=== PATIENT | female | born 2000 | race Caucasian/White ===

== ENCOUNTER 2020-02-02 22:55 | Emergency (ER) | payer OTHER, SELFPAY ==
--- NOTE | ~2020-02-02 | XR_ITS ---
XR shoulder RT min 2V DATE: 02/03/2020 02:04 INDICATION: Right glenohumeral anterior dislocation TECHNIQUE: 3 views COMPARISON: 02/02/2020 right shoulder, which demonstrate anterior dislocation at the right glenohumera l joint FINDINGS: There is reduction of anterior dislocation of the right shoulder. Normal alignment at the g lenohumeral and acromioclavicular joints and no apparent acute fracture. IMPRESSION: Reduction of anterior dislocation right shoulder Incidental findings of levoscoliosis of the upper thoracic spine and fracture deformity of undetermin ed age at T6 Reviewed, dictated and finalized at location A. IMPRESSION: Reduction of anterior dislocation right shoulder Incidental findings of levoscoliosis of the upper thoracic spine and fracture d eformity of undetermined age at T6
--- NOTE | ~2020-02-02 | XR_ITS ---
EXAMINATION: XR shoulder RT min 2V INDICATION: Right shoulder pain, dislocation TECHNIQUE: Four views of the right shoulder are submitted. COMPARISON: 11/14/2014 FINDINGS: There is anterior dislocation of the humeral head with respect to the glenoid. No acute fra cture is identified. Chronic deformity of the superolateral humeral head is consistent with prior Hil l-Sachs fracture. Soft tissues are unremarkable. IMPRESSION: 1. Anterior right shoulder dislocation. Reviewed, dictated and finalized at location A.
[2020-02-02 22:59] VITALS: BP 100/65; PULSE 83; RESP 20; TEMP 36.8; O2SAT 100
--- NOTE | 2020-02-02 23:03 | ED.UPPEXIN ---
HPI - Extremity Injury (Upper) General Chief Complaint: Extremity Injury, Upper Stated Complaint: ?R Shoulder dislocation Time Seen by Provider: 02/02/20 23:03 History of Present Illness HPI narrative: 19 yo female w/ h/o shoulder dislocation presents to the ED for a right shoulder dislocation. She reports that she was off balance and she reached out to catch herself. She had instant pain the same as prior dislocations. This is the seventh time. No weakness, numbness, wound. She denies any ohter injury. Related Data Home Medications Medication Instructions Recorded Confirmed ethosuximide 250 mg capsule 250 mg PO BID 08/17/19 folic acid 1 mg tablet 1 mg PO DAILY 08/17/19 lamotrigine 150 mg tablet 150 mg PO DAILY 08/17/19 multivitamin 1 tablet PO DAILY 08/17/19 propranolol 120 mg capsule,24 120 mg PO DAILY 08/17/19 hr,extended release zonisamide 100 mg capsule 100 mg PO DAILY 08/17/19 Allergies Allergy/AdvReac Type Severity Reaction Status Date / Time Penicillins Allergy Unknown Verified 12/23/16 10:47 Review of Systems Review of Systems: All systems reviewed & are unremarkable except as noted in HPI and below PMFSH Past Medical History Medical History Seizure disorder Surgical History Surgical History History of shoulder surgery Family History Family History Grandparent Diabetes mellitus Mother Family history of malignant neoplasm of cervix Social History Social History Smoking status: Never smoker Alcohol intake: never Exam Const: General: healthy appearing, no acute distress and alert Nutritional Appearance: well nourished Orientation/consciousness: patient oriented x3 HENMT: Head: normal to inspection Chest: Chest palpation & inspection: normal inspection of the chest and no tenderness Resp: Effort & Inspection: normal respiratory effort Auscultation: clear to auscultation bilaterally Cardio: Rate: regular rate Rhythm: regular rhythm Skin: General skin exam: normal color Wounds: no wounds Neuro: General: moves all extremities, no focal motor deficits and CN's II-XI intact bilaterally Speech: normal speech Other: sensation intact over deltoid. Distal motor and sensory intact. Extrem: Other: Right shoulder dislocation Course Vital Signs Vital signs: Vital Signs Temperature 36.8 C 02/02/20 22:59 Pulse Rate 83 02/02/20 22:59 Respiratory Rate 20 02/02/20 22:59 Blood Pressure 100/65 02/02/20 22:59 Pulse Oximetry 100 02/02/20 22:59 Temperature 36.6 C 02/03/20 01:41 Pulse Rate 80 02/03/20 02:25 Respiratory Rate 16 02/03/20 02:25 Blood Pressure 93/58 L 02/03/20 02:25 Pulse Oximetry 99 02/03/20 02:25 Procedures Orthopedic Joint Reduction Joint #1: Orthopedic Joint Reduction Date: 02/03/20 Orthopedic Joint Reduction Time: 01:10 Time Out Performed: Yes Side: right Joint Reduction Location: shoulder Analgesia: procedural sedation Pre-Procedure Neuro Vascular Exam: normal Shoulder Technique Used (if applicable): other Post-reduction neuro exam: intact Post-reduction vascular: intact Post Reduction X-Ray Obtained: Yes Post Reduction X-Ray Results: reduced Splint Applied: Yes Patient Tolerated Procedure: well Procedural Sedation Procedural Sedation #1: Procedural Sedation Date: 02/03/20 Procedural Sedation Time: 01:10 Procedure: SHoulder reduction Provider Performed: sedation and procedure Informed Consent Obtained: yes Equipment in Room: bag and mask, capnography, district engineer, oxygen, pulse oximeter and suction Plan for Sedation: moderate sedation ASA Class: I Pt. Educ
[2020-02-02] MEDS: fentaNYL CITRATE INJ (*CRX) 100 MCG/2 ML VIAL IV PUSH (23:42)
[2020-02-03] VITALS (9 sets, daily range): BP systolic 89–103; BP diastolic 52–60; PULSE 69–88; RESP 13–18; TEMP 36.6–36.7; O2SAT 98–100
[2020-02-03] MEDS: PROPOFOL IV EMULSION 200 MG/20 ML VIAL (01:10)
--- NOTE | 2020-02-03 01:32 | PC.NURSE ---
0110-50mg Propofol given---patient still showing signs of discomfort 0112 - 20mg Propofol given- patient no longer responsive or showing distress signs with manipulation of right shoulder by Dr Souza 0013-right shoulder relocated by Dr Souza
== END 2020-02-03 02:25 | disposition home or self-care (01) ==
PROVIDERS: Emergency Provider Emergency Medicine; PCP Pediatrics
DX: S43.014A Anterior dislocation of right humerus, initial encounter (principal); G40.909 Epilepsy, unspecified, not intractable, without status epilepticus; W10.9XXA Fall (on) (from) unspecified stairs and steps, initial encounter
CPT/HCPCS: 23650; 73030; 96374; 99285; J2704; J3010

== ENCOUNTER 2020-06-15 04:04 | Emergency (ER) | payer OTHER, SELFPAY ==
[2020-06-15] VITALS (7 sets, daily range): BP systolic 93–100; BP diastolic 60–82; PULSE 60–83; RESP 10–20; TEMP 36.4; O2SAT 99–100
--- NOTE | ~2020-06-15 | XR_ITS ---
EXAMINATION: XR shoulder RT min 2V INDICATION: Right shoulder pain TECHNIQUE: Two views of the right shoulder are submitted. COMPARISON: 02/03/2020 FINDINGS: There is anterior/inferior dislocation of the humeral head with respect to the glenoid. No acute fracture is identified. There is chronic deformity at the superolateral humeral head, consisten t with prior Hill-Sachs fracture. Soft tissues are unremarkable. The visualized portions of the thora x are normal. IMPRESSION: 1. Anterior/inferior right shoulder dislocation. Reviewed, dictated and finalized at location A. CLIENT BANKING SERVICES CLERK
--- NOTE | ~2020-06-15 | XR_ITS ---
EXAMINATION: XR shoulder RT min 2V INDICATION: Right shoulder pain post reduction TECHNIQUE: Two views of the right shoulder are submitted. COMPARISON: None FINDINGS: The right glenohumeral dislocation has been reduced. There is no acute fracture. Chronic de formity of the superolateral margin of the humeral head is consistent with prior Hill-Sachs fracture. The acromioclavicular joint is unremarkable. The visualized portions of the right hemithorax are nor mal. Soft tissues are unremarkable. IMPRESSION: 1. Reduced right shoulder dislocation. Reviewed, dictated and finalized at location A. ICES ENGINEER
--- NOTE | 2020-06-15 04:16 | ED.GENADULT ---
HPI - General Adult General Chief complaint: Extremity Injury, Upper Stated complaint: rt shoulder dislocation Time Seen by Provider: 06/15/20 04:09 History of Present Illness HPI narrative: Patient a 19-year-old female who presents the emergency department with chief complaint of right shoulder pain. The patient reports she has had multiple shoulder dislocations in the past and was sleeping and woke up and twisted her shoulder and felt that dislocate. Patient states it feels similar to whenever she is a dislocations in the past she denies paresthesias denies injury distal to the shoulder. Patient reports she has an orthopedic surgeon she has seen for this. Related Data Home Medications Medication Instructions Recorded Confirmed ethosuximide 250 mg capsule 250 mg PO BID 08/17/19 folic acid 1 mg tablet 1 mg PO DAILY 08/17/19 lamotrigine 150 mg tablet 150 mg PO DAILY 08/17/19 multivitamin 1 tablet PO DAILY 08/17/19 propranolol 120 mg capsule,24 120 mg PO DAILY 08/17/19 hr,extended release zonisamide 100 mg capsule 100 mg PO DAILY 08/17/19 Allergies Allergy/AdvReac Type Severity Reaction Status Date / Time Penicillins Allergy Unknown Verified 12/23/16 10:47 Review of Systems Review of Systems: Narrative: A 10 system review of systems was completed on the patient and is negative except for what is stated in the HPI. Nursing and ancillary documentation was reviewed. PMFSH Past Medical History Medical History Seizure disorder Surgical History Surgical History History of shoulder surgery Family History Family History Grandparent Diabetes mellitus Mother Family history of malignant neoplasm of cervix Social History Social History Smoking status: Never smoker Alcohol intake: never Exam Narrative: Exam Narrative: GENERAL: Well-appearing, well-nourished, and in no acute distress. HEAD: Normocephalic, atraumatic. EYES: PERRLA and EOMI. ENT: Nares clear, no rhinorrhea or epistaxis. Mucous membranes moist. NECK: Supple. CHEST: Clear to auscultation. No respiratory distress. HEART: Regular rate and rhythm. No murmur heard. Normal peripheral pulses. ABDOMEN: Soft, nontender, nondistended, normal active bowel sounds. EXTREMITIES: Decreased range of motion of the right shoulder. SKIN: Warm, dry, no rash. NEURO: No focal deficits. Alert and oriented x3. PSYCH: Normal mood and affect. Course Course Emergency Course: Initial x-ray showed evidence of shoulder dislocation after reduction there was successful reduction of the shoulder dislocation Vital Signs Vital signs: Vital Signs Temperature 36.4 C 06/15/20 04:05 Pulse Rate 72 06/15/20 04:05 Respiratory Rate 16 06/15/20 04:05 Blood Pressure 93/82 L 06/15/20 04:05 Pulse Oximetry 100 06/15/20 04:05 Temperature 36.4 C 06/15/20 04:05 Pulse Rate 83 06/15/20 05:05 Respiratory Rate 18 06/15/20 05:05 Blood Pressure 95/66 L 06/15/20 05:05 Pulse Oximetry 100 06/15/20 05:05 Procedures Orthopedic Joint Reduction Joint #1: Orthopedic Joint Reduction Date: 06/15/20 Orthopedic Joint Reduction Time: 05:04 Time Out Performed: Yes Side: right Joint Reduction Location: shoulder Analgesia: procedural sedation Pre-Procedure Neuro Vascular Exam: normal Shoulder Technique Used (if applicable): Pierre Post-reduction neuro exam: intact Post-reduction vascular: intact Post Reduction X-Ray Obtained: Yes Post Reduction X-Ray Results: reduced Patient Tolerated Procedure: well Procedural Sedation Procedural Sedation #1: Procedural Sedation Date: 06/15/20 Procedural Sedation Time: 04:36 Pres
[2020-06-15] MEDS: SODIUM CHLORIDE 0.9% IV 1,000 ML 999 ML IV CONT (04:45)
[2020-06-15] MEDS: PROPOFOL IV EMULSION 200 MG/20 ML VIAL 70 MG IV PUSH (04:55)
[2020-06-15] MEDS: fentaNYL CITRATE INJ (*CRX) 100 MCG/2 ML VIAL 25 MCG IV PUSH (05:03)
--- NOTE | 2020-06-15 05:05 | PC.NURSE ---
dr. walker gave propofol total of 130mg
== END 2020-06-15 06:05 | disposition home or self-care (01) ==
PROVIDERS: Emergency Provider Emergency Medicine; PCP Pediatrics
DX: M24.411 Recurrent dislocation, right shoulder (principal)
CPT/HCPCS: 23650; 73030; 99285; A4565; J2704; J3010; J7030

== ENCOUNTER 2020-06-15 14:22 | Emergency (ER) | payer OTHER, SELFPAY ==
[2020-06-15 14:28] VITALS: BP 92/77; PULSE 93; RESP 18; TEMP 36.9; O2SAT 99
--- NOTE | 2020-06-15 15:37 | ED.SEIZURE ---
HPI - Seizure General Chief Complaint: Seizure Stated Complaint: seizures Time Seen by Provider: 06/15/20 14:40 Source: patient Mode of arrival: EMS Limitations: no limitations History of Present Illness HPI Narrative: A 19-year-old female comes into the emergency department today with complaints of a seizure. Patient has a known seizure disorder. She states that she takes 3 different medications and has been taking them. She denies missing any doses. Patient denies any exacerbating factors. She states that she has not had any infectious type symptoms including denying any UTI symptoms, cough, shortness of breath or other issues. She notes that she is in town going to school and sees a neurologist over in [place]. Seizure History: Yes Related Data Home Medications Medication Instructions Recorded Confirmed ethosuximide 250 mg capsule 250 mg PO BID 08/17/19 folic acid 1 mg tablet 1 mg PO DAILY 08/17/19 lamotrigine 150 mg tablet 150 mg PO DAILY 08/17/19 multivitamin 1 tablet PO DAILY 08/17/19 propranolol 120 mg capsule,24 120 mg PO DAILY 08/17/19 hr,extended release zonisamide 100 mg capsule 100 mg PO DAILY 08/17/19 Allergies Allergy/AdvReac Type Severity Reaction Status Date / Time Penicillins Allergy Unknown Verified 12/23/16 10:47 Review of Systems Review of Systems: Narrative: CONSTITUTIONAL: Denies fever, chills, or sweats. EYES: Denies visual changes, redness, or discharge. ENT: Denies rhinorrhea, congestion, sore throat, or otalgia. CARDIOVASCULAR: Denies chest pain, palpitations, or edema. RESPIRATORY: Denies cough or dyspnea. GASTROINTESTINAL: Denies abdominal pain, nausea, vomiting, or diarrhea. GENITOURINARY: Denies dysuria or hematuria. SKIN: Denies rash or itching. MUSCULOSKELETAL: Denies back pain, joint pain, or myalgia. NEUROLOGIC: Denies headache, numbness, dizziness, or weakness. PSYCHIATRIC: Denies anxiety or depression. [facility] Past Medical History Medical History Seizure disorder Surgical History Surgical History History of shoulder surgery Family History Family History Grandparent Diabetes mellitus Mother Family history of malignant neoplasm of cervix Social History Social History Smoking status: Never smoker Alcohol intake: never Exam Narrative: Exam Narrative: GENERAL: Well-appearing, well-nourished, and in no acute distress. HEAD: Normocephalic, atraumatic. EYES: PERRLA and EOMI. ENT: Nares clear, no rhinorrhea or epistaxis. Mucous membranes moist. Oropharynx without tonsillar hypertrophy exudate or other lesions. Bilateral TMs pearly tierney nonbulging NECK: Supple. No adenopathy or masses. No carotid bruits or JVD CHEST: Clear to auscultation. No respiratory distress. No wheezes rales or rhonchi HEART: Regular rate and rhythm. No murmur heard. Normal peripheral pulses. ABDOMEN: Soft, nontender, nondistended, normal active bowel sounds. EXTREMITIES: Normal range of motion. No edema. SKIN: Warm, dry, no rash. NEURO: No focal deficits. Alert and oriented x3. PSYCH: Normal mood and affect. Course Reevaluation(s) Reevaluation #1: Presented to reevaluate patient and provide care update. Patient's labs have all returned and are all within normal limits. Explained this to the patient. She verbalized her understanding. She states that she feels a headache/migraine coming on. Her family member who is in the room states that migraines seem to trigger seizures so they are worried about her having another seizure. Will order migraine cocktail at this time. Time: 17:13 Reevaluation #2: Patient resting comfortably at this time. Notes that her headache is feeling much better. She states that she is ready to go home at this time. Time: 18:44 Vital Signs Vital s
[2020-06-15 16:04] LABS: Basophils Percent Auto 0.1 % (0.2-1.2); Eosinophils Percent Auto 0.2 % (0-4.4); Hematocrit 34.8 % (37.0-47.0); Immature Granulocyte Absolute 0.03 K/mm3 (0.00-0.031); Immature Granulocyte Percent A 0.3 % (0-0.5); Lymphocytes Absolute Auto 1.45 K/mm3 (0.9-3.2); Lymphocytes Percent Auto 14.5 % (18.3-44.2); Mean Corpuscular HGB Conc 34.5 g/dl (32-36); Mean Corpuscular Hemoglobin 30.9 pg (26-34); Mean Corpuscular Volume 89.7 fl (80-100); Mean Platelet Volume 9.7 fl (7.4-10.4); Monocytes Absolute Auto 0.7 K/mm3 (0.1-0.6); Monocytes Percent Auto 6.7 % (2.6-8.5); Neutrophils Absolute Auto 7.8 K/mm3 (1.3-6.7); Neutrophils Percent Auto 78.2 % (45.5-73.1); Platelet Count Result 270 k/mm3 (150-375); Red Blood Count 3.88 M/mm3 (4.2-5.4); Red Cell Distribution Width 12.7 % (11.5-14.5)
[2020-06-15 16:10] LABS: Add Urine Microscopic? YES; Amorphous Sediment Urine Few; Appearance Urine Cloudy (Clear); Bacteria Urine Trace /hpf; Bilirubin Urine Negative (Negative); Blood Urine Negative (Negative); Color Urine Yellow (Yellow); Glucose Urine UA Negative (Negative); Ketones Urine Negative (Negative); Leukocyte Esterase Ur Negative LEU/UL (Negative); Mucus Urine Rare /lpf; Nitrate Urine Negative (Negative); Protein Urine 1+ mg/dL (Negative); RBC Urine 0-2 /hpf (0-2); Specific Grav Ur 1.014 (1.001-1.035); Squamous Epithelial Cell Urine Rare /hpf (Few); Urobilinogen Urine Negative mg/dL (<2.0); WBC Urine 0-3 /hpf
[2020-06-15 16:27] LABS: Alanine Aminotransferase 12 U/L (4-35); Albumin Level 4.2 g/dL (3.5-5.1); Alkaline Phosphatase 53 U/L (38-126); Anion Gap 8 mmol/L (8-16); Aspartate Amino Transferase 25 U/L (14-36); Bilirubin,Total 0.2 mg/dL (0.2-1.3); Blood Urea Nitrogen 7 mg/dL (7-17); Calcium 9.1 mg/dL (8.4-10.2); Carbon Dioxide 20 mmol/L (22-30); Chloride 109 mmol/L (98-107); Creatine Kinase 202 U/L (30-135); Estimated Glomerular Filt Rate > 60; Glucose 97 mg/dL (65-105); Potassium 3.3 mmol/L (3.4-5.0); Sodium 137 mmol/L (137-145)
[2020-06-15 16:39] LABS: Amphetamine Screen Urine Negative (Negative); Barbiturate Screen Urine Negative (Negative); Benzodiazepines Screen Urine Negative (Negative); Cannabinoid Screen Urine Negative (Negative); Cocaine Screen Urine Negative (Negative); Methadone Screen Urine Negative (Negative); Opiate Screen Urine Negative (Negative); Phencyclidine Screen Urine Negative (Negative)
[2020-06-15] MEDS: LACTATED RINGERS 1,000 ML 999 ML IV CONT (17:19)
[2020-06-15] MEDS: KETOROLAC 15 MG/ML VIAL (*BKC) IV PUSH (17:26)
[2020-06-15] MEDS: PROCHLORPERAZINE EDISYLATE 10 MG/2 ML VIAL 5 MG IV PUSH (17:26)
[2020-06-15] MEDS: diphenhydrAMINE HCl INJ 50 MG/ML VIAL 25 MG IV PUSH (17:26)
[2020-06-15 19:08] VITALS: BP 122/78; PULSE 68; RESP 18; O2SAT 99
== END 2020-06-15 19:10 | disposition home or self-care (01) ==
PROVIDERS: Emergency Provider Emergency Medicine; PCP Pediatrics
DX: G40.309 Generalized idiopathic epilepsy and epileptic syndromes, not intractable, without status epilepticus (principal)
CPT/HCPCS: 36415; 80053; 80307; 81001; 81025; 82550; 83605; 85025; 96361; 96374; 96375; 99284; J0780; J1200; J1885; J7120

== ENCOUNTER 2020-07-22 02:05 | Emergency (ER) | payer OTHER, SELFPAY ==
[2020-07-22] VITALS (8 sets, daily range): BP systolic 95–102; BP diastolic 60–77; PULSE 60–89; RESP 9–17; TEMP 36.5; O2SAT 98–100
--- NOTE | ~2020-07-22 | XR_ITS ---
EXAMINATION: XR shoulder RT min 2V INDICATION: Right shoulder dislocation TECHNIQUE: Two views of the right shoulder are submitted. COMPARISON: 06/15/2020 FINDINGS: There is anterior and inferior dislocation of the humeral head with respect to the glenoid. No fracture is identified. Again noted is chronic deformity at the superolateral aspect of the humer al head, consistent with Hill-Sachs fracture. Soft tissues are unremarkable. IMPRESSION: 1. Anterior/inferior right shoulder dislocation. Reviewed, dictated and finalized at location A.
--- NOTE | ~2020-07-22 | XR_ITS ---
EXAMINATION: XR shoulder RT min 2V INDICATION: Right shoulder dislocation post reduction TECHNIQUE: Two views of the right shoulder are submitted. COMPARISON: 0238 hours FINDINGS: The previously described right glenohumeral dislocation has been reduced. Alignment is reba omic. No acute fracture is identified. Chronic deformity of the superolateral margin of the humeral h ead is again noted, consistent with prior Hill-Sachs fracture. Soft tissues are unremarkable. IMPRESSION: 1. Reduced right shoulder dislocation. Reviewed, dictated and finalized at location A.
[2020-07-22] MEDS: MIDAZOLAM HCL (*CRX) 2 MG/2 ML VIAL IV PUSH (02:29)
[2020-07-22] MEDS: HYDROmorphone HCL INJ (*CRX) 1 MG/ML SYR IV PUSH (02:29)
--- NOTE | 2020-07-22 02:31 | ED.GENADULT ---
HPI - General Adult General Chief complaint: Extremity Injury, Upper Stated complaint: Right shoulde dislocation Time Seen by Provider: 07/22/20 02:09 History of Present Illness HPI narrative: Patient 19-year-old female presents emergency department chief complaint of right shoulder pain. Patient reports she has history of multiple shoulder dislocations in the past and reports she was reaching back at the [employer] and sneezed and felt her shoulder pop. Patient states this feels similar to whenever she has had dislocations in the past reports that she does have history of a seizure disorder. Related Data Home Medications Medication Instructions Recorded Confirmed ethosuximide 250 mg capsule 250 mg PO BID 08/17/19 folic acid 1 mg tablet 1 mg PO DAILY 08/17/19 lamotrigine 150 mg tablet 150 mg PO DAILY 08/17/19 multivitamin 1 tablet PO DAILY 08/17/19 propranolol 120 mg capsule,24 120 mg PO DAILY 08/17/19 hr,extended release zonisamide 100 mg capsule 100 mg PO DAILY 08/17/19 Allergies Allergy/AdvReac Type Severity Reaction Status Date / Time Penicillins Allergy Unknown Verified 12/23/16 10:47 Review of Systems Review of Systems: Narrative: A 10 system review of systems was completed on the patient and is negative except for what is stated in the HPI. Nursing and ancillary documentation was reviewed. [facility] Past Medical History Medical History Seizure disorder Surgical History Surgical History History of shoulder surgery Family History Family History Grandparent Diabetes mellitus Mother Family history of malignant neoplasm of cervix Social History Social History Smoking status: Never smoker Alcohol intake: never Exam Narrative: Exam Narrative: GENERAL: Well-appearing, well-nourished, and in no acute distress. HEAD: Normocephalic, atraumatic. EYES: PERRLA and EOMI. ENT: Nares clear, no rhinorrhea or epistaxis. Mucous membranes moist. NECK: Supple. CHEST: Clear to auscultation. No respiratory distress. HEART: Regular rate and rhythm. No murmur heard. Normal peripheral pulses. ABDOMEN: Soft, nontender, nondistended, normal active bowel sounds. EXTREMITIES: Normal range of motion. No edema. There is an obvious shoulder dislocation of the right shoulder SKIN: Warm, dry, no rash. NEURO: No focal deficits. Alert and oriented x3. PSYCH: Normal mood and affect. Course Vital Signs Vital signs: Vital Signs Temperature 36.5 C 07/22/20 02:07 Pulse Rate 89 07/22/20 02:07 Pulse Oximetry 100 07/22/20 02:07 Temperature 36.5 C 07/22/20 02:07 Pulse Rate 76 07/22/20 03:15 Respiratory Rate 12 07/22/20 03:15 Blood Pressure 99/71 L 07/22/20 03:15 Pulse Oximetry 100 07/22/20 03:15 Procedures Orthopedic Joint Reduction Joint #1: Orthopedic Joint Reduction Date: 07/22/20 Orthopedic Joint Reduction Time: 03:18 Time Out Performed: Yes Side: right Joint Reduction Location: shoulder Analgesia: procedural sedation Pre-Procedure Neuro Vascular Exam: normal Shoulder Technique Used (if applicable): traction/counter-traction Post-reduction neuro exam: intact Post-reduction vascular: intact Post Reduction X-Ray Obtained: Yes Post Reduction X-Ray Results: reduced Patient Tolerated Procedure: well Additional Comments: Sling applied post procedure Procedural Sedation Procedural Sedation #1: Procedural Sedation Date: 07/22/20 Procedural Sedation Time: 03:18 Presedation Evaluation: Patient 19-year-old female with a right shoulder dislocation just has prior history of seizure disorder and prior dislocations Procedure: Closed reduction of
[2020-07-22] MEDS: SODIUM CHLORIDE 0.9% IV 1,000 ML 150 ML (03:00)
[2020-07-22] MEDS: PROPOFOL IV EMULSION 200 MG/20 ML VIAL 80 MG IV PUSH (03:09)
== END 2020-07-22 04:40 | disposition home or self-care (01) ==
PROVIDERS: Emergency Provider Emergency Medicine; PCP Pediatrics
DX: M24.411 Recurrent dislocation, right shoulder (principal); G40.909 Epilepsy, unspecified, not intractable, without status epilepticus
CPT/HCPCS: 23650; 73030; 96374; 96375; 99285; A4565; J1170; J2250; J2704; J7030

== ENCOUNTER 2020-08-13 22:05 | Emergency (ER) | payer OTHER, SELFPAY ==
--- NOTE | ~2020-08-13 | CT_ITS ---
EXAMINATION: CTA chest PE abdomen pel DATE: 08/14/2020 03:00 INDICATION: Rib pain, upper abdominal pain. Elevated d-dimer. TECHNIQUE: Computed tomography angiography (CTA) of the chest was performed with 100 mL Omnipaque-350 intravenous contrast timed to evaluate the pulmonary arteries. Coronal maximum intensity projection 3D-reconstructions were created by the technologist. Automated exposure control and iterative reconst ruction technique were employed. Exam dose: 362.83 mGy-cm total exam DLP. COMPARISON: 08/13/2020 PA and lateral chest /02/2019 CT abdomen pelvis FINDINGS: There is diagnostic contrast enhancement of the pulmonary arteries and no evidence of pulmo nary embolism. No thoracic aortic aneurysm or dissection. Normal heart size. No pericardial or pleural effusion. No hilar or mediastinal mass lesion or lymphadenopathy. No pulmonary infiltrate or consolidation or pulmonary mass lesion. There is mild discoid atelectasis or less likely scarring in the lower lobes at the lung bases. Thoracic scoliosis. Moderate loss of height and biconcave deformity of T6. Mild biconcavity of T7 and T8. These are likel y chronic compression fracture deformities. IMPRESSION: No evidence of pulmonary embolism Mild discoid atelectasis or less likely scarring in the lower lobes. Probable chronic compression fracture deformities of T6, T7-T8 Thoracic scoliosis Reviewed, dictated and finalized at Location A. Reviewed, dictated and finalized at location A.
--- NOTE | ~2020-08-13 | XR_ITS ---
EXAMINATION: XR chest 2V 08/13/2020 22:39 INDICATION: Dyspnea. Chest pressure. PROCEDURE: 2 view COMPARISON: No prior studies for comparison. FINDINGS: The lungs are clear. The cardiomediastinal silhouette is within normal limits. There are no pleural effusions. There is no pneumothorax suspected. There is mild scoliosis. IMPRESSION: 1: NO ACUTE CARDIOPULMONARY DISEASE. Reviewed, dictated and finalized at location A.
[2020-08-13 22:18] VITALS: BP 113/64; PULSE 74; RESP 16; TEMP 36.4; O2SAT 100
--- NOTE | 2020-08-14 01:21 | ED.GENADULT ---
HPI - General Adult General Chief complaint: Unspecified Stated complaint: lungs hurt Time Seen by Provider: 08/14/20 01:04 Source: patient Mode of arrival: ambulatory Limitations: no limitations History of Present Illness HPI narrative: This is a 19 year old female with history migraines and epilepsy who presents for evaluation of lung pain . She reports pain that is located epigastric intermittently x 2 weeks. She states she came today because it is getting worse. Her pain is worse with cough and breathing. She denies sob, nausea, vomiting, urinary symptoms or fever. She has not taken anything for pain. Related Data Home Medications Medication Instructions Recorded Confirmed ethosuximide 250 mg capsule 250 mg PO BID 08/17/19 folic acid 1 mg tablet 1 mg PO DAILY 08/17/19 lamotrigine 150 mg tablet 150 mg PO DAILY 08/17/19 multivitamin 1 tablet PO DAILY 08/17/19 propranolol 120 mg capsule,24 120 mg PO DAILY 08/17/19 hr,extended release zonisamide 100 mg capsule 100 mg PO DAILY 08/17/19 Allergies Allergy/AdvReac Type Severity Reaction Status Date / Time Penicillins Allergy Unknown Verified 12/23/16 10:47 Review of Systems Review of Systems: All systems reviewed & are unremarkable except as noted in HPI and below PMFSH Past Medical History Medical History Seizure disorder Surgical History Surgical History History of shoulder surgery Family History Family History Grandparent Diabetes mellitus Mother Family history of malignant neoplasm of cervix Social History Social History Smoking status: Never smoker Alcohol intake: never Exam Narrative: Exam Narrative: GENERAL: Well-appearing, well-nourished, and in no acute distress. HEAD: Normocephalic, atraumatic EYES: PERRLA and EOMI, conjunctiva clear without discharge NOSE: Nares clear, no rhinorrhea or epistaxis THROAT:Mucous membranes moist, Oropharynx normal without erythema, exudate, peritonsillar swelling or fluctuance NECK: Supple, without lymphadenopathy or mass RESPIRATORY: No respiratory distress, Airway patent, Respirations non-labored, Clear to auscultation without rales, rhonchi or wheeze HEART: Regular rate and rhythm. No murmur heard. Normal peripheral pulses. ABDOMEN: Soft, epigastric tenderness, nondistended, normal active bowel sounds. No masses. No rebound or guarding, No organomegaly. EXTREMITIES: No edema, normal strength with full range of motion. SKIN: Warm, dry, normal color without rash NEURO: Alert and oriented x3. CN 2-12 grossly intact. No focal deficits. PSYCH: Normal mood and affect. Course Reevaluation(s) Reevaluation #1: I have discussed with patient CT shows right ovarian cyst that has ruptured. I discussed discharge plan. She denies any additional questions. Date: 08/14/20 Time: 04:06 Vital Signs Vital signs: Vital Signs Temperature 97.6 F 08/13/20 22:18 Pulse Rate 74 08/13/20 22:18 Respiratory Rate 16 08/13/20 22:18 Blood Pressure 113/64 08/13/20 22:18 Pulse Oximetry 100 08/13/20 22:18 Temperature 97.9 F 08/14/20 04:33 Pulse Rate 67 08/14/20 04:33 Respiratory Rate 18 08/14/20 04:33 Blood Pressure 120/73 08/14/20 04:33 Pulse Oximetry 99 08/14/20 04:33 Medical Decision Making Vital Signs Vital Signs: Vital Signs Temperature 97.6 F 08/13/20 22:18 Pulse Rate 74 08/13/20 22:18 Respiratory Rate 16 08/13/20 22:18 Blood Pressure 113/64 08/13/20 22:18 Pulse Oximetry 100 08/13/20 22:18 Temperature 97.9 F 08/14/20 04:33 Pulse Rate 67 08/14/20 04:33 Respiratory Rate 18 08/14/20 04:33 Blood Pressure 120/73 08/14/20 04:33 Pulse Oximetry 99 08/14/20 04:33 Lab Data Lab
--- NOTE | 2020-08-14 01:25 | PC.NURSE ---
pt c/o chest pain that is worse upon deep inspiration and c movement. pt c/o pain under bilateral ribs. rates pain 4/10 at present. skin pwd. resps even, nonlabored, regular. no s/s of distress. placed on monitor.
[2020-08-14 01:46] VITALS: RESP 16
[2020-08-14 01:48] LABS: Basophils Percent Auto 0.3 % (0.2-1.2); Eosinophils Absolute Auto 0.1 K/mm3 (0-0.3); Eosinophils Percent Auto 1.1 % (0-4.4); Hematocrit 36.1 % (37.0-47.0); Hemoglobin 11.7 g/dL (12.0-15.0); Immature Granulocyte Absolute 0.01 K/mm3 (0.00-0.031); Immature Granulocyte Percent A 0.1 % (0-0.5); Lymphocytes Absolute Auto 2.53 K/mm3 (0.9-3.2); Lymphocytes Percent Auto 36.4 % (18.3-44.2); Mean Corpuscular HGB Conc 32.4 g/dl (32-36); Mean Corpuscular Hemoglobin 29.7 pg (26-34); Mean Corpuscular Volume 91.6 fl (80-100); Mean Platelet Volume 9.7 fl (7.4-10.4); Monocytes Absolute Auto 0.7 K/mm3 (0.1-0.6); Monocytes Percent Auto 9.6 % (2.6-8.5); Neutrophils Absolute Auto 3.7 K/mm3 (1.3-6.7); Neutrophils Percent Auto 52.5 % (45.5-73.1); Platelet Count Result 257 k/mm3 (150-375); Red Blood Count 3.94 M/mm3 (4.2-5.4); Red Cell Distribution Width 13.2 % (11.5-14.5)
[2020-08-14 02:12] LABS: Add Urine Microscopic? YES; Amorphous Sediment Urine Few; Appearance Urine Turbid (Clear); Bacteria Urine Trace /hpf; Bilirubin Urine Negative (Negative); Blood Urine Negative (Negative); Color Urine Yellow (Yellow); Glucose Urine UA Negative (Negative); Ketones Urine Negative (Negative); Leukocyte Esterase Ur Negative LEU/UL (Negative); Nitrate Urine Negative (Negative); Protein Urine 1+ mg/dL (Negative); Specific Grav Ur 1.014 (1.001-1.035); Squamous Epithelial Cell Urine Many /hpf (Few); Urobilinogen Urine Negative mg/dL (<2.0)
[2020-08-14 02:14] LABS: Alanine Aminotransferase 12 U/L (4-35); Albumin Level 4.2 g/dL (3.5-5.1); Alkaline Phosphatase 46 U/L (38-126); Anion Gap 7 mmol/L (8-16); Aspartate Amino Transferase 27 U/L (14-36); Bilirubin,Total < 0.1 mg/dL (0.2-1.3); Blood Urea Nitrogen 9 mg/dL (7-17); Calcium 8.8 mg/dL (8.4-10.2); Carbon Dioxide 23 mmol/L (22-30); Chloride 108 mmol/L (98-107); Estimated Glomerular Filt Rate > 60; Glucose 90 mg/dL (65-105); Lipase 73 U/L (23-300); Potassium 3.8 mmol/L (3.4-5.0); Sodium 138 mmol/L (137-145)
[2020-08-14 02:15] VITALS: PULSE 68
[2020-08-14 02:22] LABS: INR 1.1; Partial Thromboplastin Time 35.8 SECONDS (22.3-36.8); Prothrombin Time 14.6 Seconds (11.1-14.7)
[2020-08-14 02:25] LABS: D Dimer 0.73 ug/mL (<0.48)
[2020-08-14 04:33] VITALS: BP 120/73; PULSE 67; RESP 18; TEMP 36.6; O2SAT 99
== END 2020-08-14 04:37 | disposition home or self-care (01) ==
PROVIDERS: Emergency Provider General Practice; PCP Pediatrics
DX: N83.201 Unspecified ovarian cyst, right side (principal); K59.00 Constipation, unspecified; G40.909 Epilepsy, unspecified, not intractable, without status epilepticus; M41.9 Scoliosis, unspecified; R93.7 Abnormal findings on diagnostic imaging of other parts of musculoskeletal system
CPT/HCPCS: 36415; 71046; 71275; 74177; 80053; 81001; 81025; 83690; 85025; 85380; 85610; 85730; 99284; Q9967

== ENCOUNTER 2020-08-22 09:53 | Outpatient (CLI) | payer OTHER, SELFPAY ==
--- NOTE | ~2020-08-22 | US_ITS ---
EXAMINATION: US pelvic complete DATE: 08/22/2020 10:29 INDICATION: Ovarian cyst Comparison:No prior studies for comparison. TECHNIQUE: Multiple transabdominal sonographic images of the pelvis performed. FINDINGS: The uterus measures 8 x 3.2 x 5.1 cm. The endometrial complex measures 2 mm. The right ovary measures 3 x 1.7 x 1.6 cm and the left ovary measures 2.1 x 1.4 x 1.5 cm. There are small follicles in each ovary. Normal doppler signal in both ovaries. There is no free fluid in the pelvis. There are no abnormal masses seen on either side. IMPRESSION: 1. Normal pelvic ultrasound. Reviewed, dictated and finalized at location B.
== END 2020-08-22 09:54 | disposition home or self-care (01) ==
PROVIDERS: PCP Pediatrics; Visit Provider Obstetrics & Gynecology
DX: N83.209 Unspecified ovarian cyst, unspecified side (principal)
CPT/HCPCS: 76856

== ENCOUNTER 2020-08-23 15:39 | Emergency (ER) | payer OTHER, SELFPAY ==
--- NOTE | ~2020-08-23 | CT_ITS ---
EXAMINATION: CT brain wo con, CT cervical spine wo con EXAM DATE: 08/23/2020 17:17 (accession [id number]), 08/23/2020 17:18 (accession [id number]) INDICATION: Seizure, fall, head injury. TECHNIQUE: Spiral CT of the head was performed without contrast. Axial, coronal and sagittal images were reviewed. Spiral CT of the cervical spine was performed without contrast. Axial images were rev iewed. Coronal and sagittal reformatted images were also reviewed. The dose-length product (DLP) fo r this examination was 605.33 (accession [id number]), 125.93 (accession [id number]) mGy-cm. The exposure was tailored according to patient size, and iterative reconstruction (ASIR) was used as additional dose reduction technique. Comparison is made to prior examination from 05/19/2010. FINDINGS: HEAD CT: There is no acute intraparenchymal hemorrhage. No evidence of intraparenchymal brain mass lesion. No evidence of acute infarction. There is no mass effect or midline shift. There is no obstr uctive hydrocephalus suspected. There are no extra-axial collections. There are no acute calvarial fractures. The orbits are unremarkable. Small right posterior vertex scalp swelling. The visualized sinuses and mastoid air cells are well aerated. CERVICAL CT: There is no evidence of acute cervical fracture. The odontoid process is intact. Pre- dens space is normal. Prevertebral soft tissue is normal. There are no soft tissue abnormalities id entified. There is no disc space widening or traumatic vertebral body subluxation suspected. Verteb ral body and disc heights are well-maintained. There is mild cervical thoracic scoliosis. A detailed level by level evaluation of spondylosis can be added as addendum if requested. IMPRESSION: 1. No acute intracranial findings or cervical fracture. 2. Small right posterior scalp swelling. 3. Mild cervicothoracic scoliosis. Reviewed, dictated and finalized at location A. IMPRESSION: 1. No acute intracranial findings or cervical fracture. 2. Small right posterior scalp swelling. 3. Mild cervicothoracic scoliosis.
--- NOTE | ~2020-08-23 | XR_ITS ---
EXAMINATION: XR shoulder RT min 2V DATE: 08/23/2020 19:17 INDICATION: Right shoulder pain post fall TECHNIQUE: AP internally and externally rotated, AP oblique externally rotated and transscapular Y vi ews of the right shoulder were obtained. COMPARISON: None FINDINGS: Normal alignment. Again seen is a prominent chronic Hill-Sachs fracture trough at the posterolateral aspect of the humeral head. No other fractures identified.. Glenoid humeral and acromioclavicular rosita nt spaces are normal. Soft tissues are unremarkable. Visualized portions of the lungs are clear. IMPRESSION: Chronic Hill-Sachs fracture trough at the right humeral head consistent with prior anterior glenohume ral dislocation. No acute osseous abnormality. Reviewed, dictated and finalized at location A. IMPRESSION: Chronic Hill-Sachs fracture trough at the right humeral head consistent with pr ior anterior glenohumeral dislocation. No acute osseous abnormality.
[2020-08-23 15:42] VITALS: BP 105/70; PULSE 112; RESP 16; TEMP 36.7; O2SAT 100
[2020-08-23 15:53] VITALS: PULSE 104
--- NOTE | 2020-08-23 15:53 | ECG_ITS ---
Measurements Intervals [place] Rate: 113 P: 59 WA: 143 QRS: 118 QRSD: 81 T: 30 QT: 343 QTc: 471 Interpretive Statements SINUS TACHYCARDIA POSSIBLE LEFT ATRIAL ENLARGEMENT RIGHT AXIS DEVIATION INCOMPLETE RIGHT BUNDLE BRANCH BLOCK BASELINE ARTIFACT- II, III, AVR, AVF, V1-V6 ABNORMAL ECG Electronically Signed On 08-23-2020 16:22:31 CDT by Blaze Becerra D.O.
[2020-08-23 16:46] LABS: Basophils Percent Auto 0.1 % (0.2-1.2); Eosinophils Percent Auto 0.5 % (0-4.4); Hemoglobin 11.9 g/dL (12.0-15.0); Immature Granulocyte Absolute 0.02 K/mm3 (0.00-0.031); Immature Granulocyte Percent A 0.3 % (0-0.5); Lymphocytes Absolute Auto 1.39 K/mm3 (0.9-3.2); Lymphocytes Percent Auto 18.8 % (18.3-44.2); Mean Corpuscular HGB Conc 33.1 g/dl (32-36); Mean Corpuscular Hemoglobin 29.8 pg (26-34); Mean Corpuscular Volume 90.2 fl (80-100); Mean Platelet Volume 9.3 fl (7.4-10.4); Monocytes Absolute Auto 0.4 K/mm3 (0.1-0.6); Monocytes Percent Auto 5.8 % (2.6-8.5); Neutrophils Absolute Auto 5.5 K/mm3 (1.3-6.7); Neutrophils Percent Auto 74.5 % (45.5-73.1); Platelet Count Result 296 k/mm3 (150-375); Red Blood Count 3.99 M/mm3 (4.2-5.4); White Blood Count 7.4 K/mm3 (4.5-10.0)
[2020-08-23 16:55] LABS: Anion Gap 8 mmol/L (8-16); Blood Urea Nitrogen 12 mg/dL (7-17); Calcium 8.7 mg/dL (8.4-10.2); Carbon Dioxide 22 mmol/L (22-30); Chloride 109 mmol/L (98-107); Estimated Glomerular Filt Rate > 60; Glucose 104 mg/dL (65-105); Potassium 3.8 mmol/L (3.4-5.0); Sodium 139 mmol/L (137-145)
[2020-08-23 17:00] LABS: Add Urine Microscopic? YES; Appearance Urine Clear (Clear); Bilirubin Urine Negative (Negative); Blood Urine Negative (Negative); Color Urine Yellow (Yellow); Glucose Urine UA Negative (Negative); Ketones Urine Negative (Negative); Leukocyte Esterase Ur Negative LEU/UL (Negative); Mucus Urine Rare /lpf; Nitrate Urine Negative (Negative); Protein Urine 2+ mg/dL (Negative); RBC Urine 0-2 /hpf (0-2); Specific Grav Ur 1.018 (1.001-1.035); Squamous Epithelial Cell Urine Rare /hpf (Few); Urobilinogen Urine Negative mg/dL (<2.0); WBC Urine 0-3 /hpf
[2020-08-23] MEDS: LORazepam INJ (*CRX) 2 MG/ML VIAL 1 MG IV PUSH (17:20)
[2020-08-23] MEDS: FAMOTIDINE 20 MG/2 ML VIAL IV PUSH (17:22)
[2020-08-23] MEDS: ONDANSETRON INJ 4 MG/2 ML VIAL IV PUSH (17:22)
[2020-08-23] MEDS: SODIUM CHLORIDE 0.9% IV 1,000 ML 999 ML IV CONT (17:27)
[2020-08-23 17:32] VITALS: BP 99/65; PULSE 87; RESP 16; O2SAT 99
[2020-08-23 17:42] LABS: Amphetamine Screen Urine Negative (Negative); Barbiturate Screen Urine Negative (Negative); Benzodiazepines Screen Urine Negative (Negative); Cannabinoid Screen Urine Negative (Negative); Cocaine Screen Urine Negative (Negative); Methadone Screen Urine Negative (Negative); Opiate Screen Urine Negative (Negative); Phencyclidine Screen Urine Negative (Negative)
[2020-08-23] MEDS: LIDOCAINE, EPINEPHRINE, TETRACAINE VISCOUS SOLN 3 ML TOPICAL (18:45)
[2020-08-23 18:47] VITALS: BP 90/50; PULSE 84; RESP 17; O2SAT 98
--- NOTE | 2020-08-23 19:29 | ED.SEIZURE ---
HPI - Seizure General Chief Complaint: Seizure Stated Complaint: sz Time Seen by Provider: 08/23/20 16:13 Source: patient, EMS and RN notes reviewed Mode of arrival: EMS Limitations: no limitations History of Present Illness HPI Narrative: Patient is a 19-year-old female who had a witnessed seizure while at work today patient with longstanding history of seizures patient is on 3 medications for seizures and has been long-term currently followed by neurology in [place]. Patient has laceration to the posterior scalp on arrival notes mild posterior headache patient with normal mentation on arrival. Patient denies any recent illness. Patient notes mild pain to the right shoulder. Patient on arrival is in no distress and not had anything for her symptoms patient notes she has been compliant with her medications. Seizure History: Yes Related Data Home Medications Medication Instructions Recorded Confirmed ethosuximide 250 mg capsule 250 mg PO BID 08/17/19 folic acid 1 mg tablet 1 mg PO DAILY 08/17/19 lamotrigine 150 mg tablet 150 mg PO DAILY 08/17/19 multivitamin 1 tablet PO DAILY 08/17/19 propranolol 120 mg capsule,24 120 mg PO DAILY 08/17/19 hr,extended release zonisamide 100 mg capsule 100 mg PO DAILY 08/17/19 Allergies Allergy/AdvReac Type Severity Reaction Status Date / Time Penicillins Allergy Unknown Unknown Verified 08/23/20 10:19 Review of Systems Review of Systems: All systems reviewed & are unremarkable except as noted in HPI and below PMFSH Past Medical History Medical History Seizure disorder Surgical History Surgical History History of shoulder surgery Family History Family History Grandparent Diabetes mellitus Mother Family history of malignant neoplasm of cervix Social History Social History Smoking status: Never smoker Alcohol intake: never Substance use: never Exam Narrative: Exam Narrative: GENERAL: Well-appearing, well-nourished, and in no acute distress. HEAD: Normocephalic, 2 cm posterior scalp laceration. Contusion of the chin EYES: PERRLA and EOMI. ENT: Nares clear, no rhinorrhea or epistaxis. Mucous membranes moist. Oropharynx without tonsillar hypertrophy exudate or other lesions. NECK: Supple. No adenopathy or masses. CHEST: Clear to auscultation. No respiratory distress. No wheezes rales or rhonchi HEART: Regular rate and rhythm. No murmur heard. Normal peripheral pulses. ABDOMEN: Soft, nontender, nondistended EXTREMITIES: Normal range of motion. No edema. Mild cervical tenderness no thoracic or lumbar tenderness SKIN: Warm, dry, no rash. NEURO: No focal deficits. Alert and oriented x3. Cranial nerves II through XII grossly intact. Normal speech. Normal gait PSYCH: Normal mood and affect. Course Course Emergency Course: Patient presented to emergency department for seizure activity last of which was in May patient notes she has been compliant with her medications is followed by neurology and feels comfortable to go home where she has 3 roommates patient will be taken home by her father. Patient has been given driving restrictions but notes that she does not drive. Patient had closure of her posterior scalp wound. Patient was made aware of her case findings to include blood work and imaging. Patient does not have any high risk changes in the blood work or imaging and is afebrile nontoxic-appearing no distress with ABCs and vital signs intact and stable. Patient agrees to follow-up with her neurologist Reevaluation(s) Reevaluation #1: Patient in the room no distress resting comfortably aware of case findings treatment plan and diagnosis at this time hemodynamically stable Date: 08/23/20 Time: 18:00 Vital Signs Vital sig
[2020-08-23 19:56] VITALS: BP 118/72; PULSE 81; RESP 16; TEMP 36.8; O2SAT 98
== END 2020-08-23 19:58 | disposition home or self-care (01) ==
PROVIDERS: Emergency Medicine Emergency Medical Services; Emergency Provider Emergency Medicine; PCP Pediatrics
DX: G40.909 Epilepsy, unspecified, not intractable, without status epilepticus (principal); S01.01XA Laceration without foreign body of scalp, initial encounter; S49.91XA Unspecified injury of right shoulder and upper arm, initial encounter; W18.39XA Other fall on same level, initial encounter
CPT/HCPCS: 12001; 36415; 70450; 72125; 73030; 80048; 80307; 81001; 81025; 85025; 93005; 96361; 96365; 96375; 99284; J0131; J2060; J2405; J7030

== ENCOUNTER 2020-09-20 02:49 | Emergency (ER) | payer OTHER, SELFPAY ==
[2020-09-20 02:54] VITALS: BP 116/65; PULSE 66; RESP 16; TEMP 36.9; O2SAT 100
--- NOTE | 2020-09-20 03:09 | ED.EAR ---
HPI - Ear Problem General Chief complaint: Ear Stated complaint: left ear pain Time Seen by Provider: 09/20/20 03:06 Source: patient Mode of arrival: ambulatory Limitations: no limitations History of Present Illness HPI Narrative: Patient is a 19-year-old female complaining of left ear pain accompanied by mild decrease in hearing that started 2 days ago. Denies any trauma to the left ear. Patient denies any discharge from the left ear. Patient denies any fever or chills. Related Data Home Medications Medication Instructions Recorded Confirmed ethosuximide 250 mg capsule 250 mg PO BID 08/17/19 08/29/20 folic acid 1 mg tablet 1 mg PO DAILY 08/17/19 08/29/20 lamotrigine 150 mg tablet 150 mg PO DAILY 08/17/19 08/29/20 multivitamin 1 tablet PO DAILY 08/17/19 08/29/20 propranolol 120 mg capsule,24 120 mg PO DAILY 08/17/19 08/29/20 hr,extended release zonisamide 100 mg capsule 100 mg PO DAILY 08/17/19 08/29/20 Allergies Allergy/AdvReac Type Severity Reaction Status Date / Time Penicillins Allergy Unknown Unknown Verified 09/20/20 02:50 Review of Systems Review of Systems: All systems reviewed & are unremarkable except as noted in HPI and below PMFSH Past Medical History Medical History Seizure disorder Surveillance for Depo-Provera contraception Surgical History Surgical History History of shoulder surgery Family History Family History Grandparent Diabetes mellitus Mother Family history of malignant neoplasm of cervix Social History Social History Smoking status: Never smoker Alcohol intake: never Substance use: never Exam Const: General: no acute distress and alert Orientation/consciousness: patient oriented x3 HENMT: Head: normal to inspection Other: Erythematous, swollen left external ear canal, tympanic membrane intact Eyes: Conjunctivae: conjunctivae normal Course Vital Signs Vital signs: Vital Signs Temperature 36.9 C 09/20/20 02:54 Pulse Rate 66 09/20/20 02:54 Respiratory Rate 16 09/20/20 02:54 Blood Pressure 116/65 09/20/20 02:54 Pulse Oximetry 100 09/20/20 02:54 Temperature 36.9 C 09/20/20 02:54 Pulse Rate 66 09/20/20 02:54 Respiratory Rate 16 09/20/20 02:54 Blood Pressure 116/65 09/20/20 02:54 Pulse Oximetry 100 09/20/20 02:54 Medical Decision Making Differential Diagnosis Differential Diagnosis: Otitis externa, otitis media Vital Signs Vital Signs: Vital Signs Temperature 36.9 C 09/20/20 02:54 Pulse Rate 66 09/20/20 02:54 Respiratory Rate 16 09/20/20 02:54 Blood Pressure 116/65 09/20/20 02:54 Pulse Oximetry 100 09/20/20 02:54 Temperature 36.9 C 09/20/20 02:54 Pulse Rate 66 09/20/20 02:54 Respiratory Rate 16 09/20/20 02:54 Blood Pressure 116/65 09/20/20 02:54 Pulse Oximetry 100 09/20/20 02:54 Discharge Plan Discharge Clinical Impression: Otitis externa Qualifiers: Otitis externa type: unspecified type Chronicity: acute Laterality: left Qualified Code(s): H60.502 - Unspecified acute noninfective otitis externa, left ear Patient Disposition: Home, Self-Care Condition: Stable Instructions: Antibiotic Form, Swimmer's Ear (GEN) Prescriptions: New ciprofloxacin-dexamethasone [Ciprodex] 0.3-0.1 % drops,suspension 4 drp EACH EAR Q12H 7 Days Qty: 7.5 RF: 0 No Action lamotrigine 150 mg tablet 150 mg PO DAILY RF: 0 ethosuximide 250 mg capsule 250 mg PO BID RF: 0 propranolol 120 mg capsule,extended release 24 hr 120 mg PO DAILY RF: 0 folic acid 1 mg tablet 1 mg PO DAILY RF: 0 multivitamin [Daily Multi-Vitamin] Tablet 1 tablet PO DAILY RF: 0 zonisamide 100 mg capsule 100 mg PO DAILY RF: 0 medroxyprogesterone [Dep
--- NOTE | 2020-09-20 03:17 | PC.NURSE ---
pt c/o left ear pain with possible decreased hearing x 2 days. able to hear this RN without difficulty. voice at appropriate volume. no s/s of distress.
== END 2020-09-20 03:45 | disposition home or self-care (01) ==
LOC: ANHED 03:26
PROVIDERS: Emergency Provider Emergency Medicine; PCP Pediatrics
DX: H60.502 Unspecified acute noninfective otitis externa, left ear (principal); G40.909 Epilepsy, unspecified, not intractable, without status epilepticus
CPT/HCPCS: 99283

== ENCOUNTER 2020-10-02 21:16 | Emergency (ER) | payer OTHER, SELFPAY ==
[2020-10-02 21:31] VITALS: BP 112/68; PULSE 76; RESP 16; TEMP 36.7; O2SAT 98
--- NOTE | 2020-10-02 22:05 | ED.GENADULT ---
HPI - General Adult General Chief complaint: Ear Stated complaint: foreign body right ear Time Seen by Provider: 10/02/20 21:37 Source: patient History of Present Illness HPI narrative: Patient is a 20 y/o female complaining of foreign body in right ear. She states that she was trying to clean her ear with some plastic instrument and some piece broke off. She has some mild pain. She has no other complaint. Related Data Home Medications Medication Instructions Recorded Confirmed ethosuximide 250 mg capsule 250 mg PO BID 08/17/19 08/29/20 folic acid 1 mg tablet 1 mg PO DAILY 08/17/19 08/29/20 lamotrigine 150 mg tablet 150 mg PO DAILY 08/17/19 08/29/20 multivitamin 1 tablet PO DAILY 08/17/19 08/29/20 propranolol 120 mg capsule,24 120 mg PO DAILY 08/17/19 08/29/20 hr,extended release zonisamide 100 mg capsule 100 mg PO DAILY 08/17/19 08/29/20 Allergies Allergy/AdvReac Type Severity Reaction Status Date / Time Penicillins Allergy Unknown Unknown Verified 09/20/20 02:50 Review of Systems Constitutional: Constitutional: Denies chills, Denies fever(s), Denies headache(s) and Denies weakness Eyes: Eyes: Denies blurry vision ENT: Reports as per HPI, Denies headache(s), Denies neck pain and Reports other (right ear foreign body) Cardiovascular: Cardiovascular: Denies chest pain and Denies dyspnea Respiratory: Respiratory: Denies cough and Denies dyspnea Gastrointestinal: Gastrointestinal: Denies abdominal pain, Denies diarrhea, Denies nausea and Denies vomiting Genitourinary: Genitourinary: Denies hematuria and Denies dysuria Musculoskeletal: Musculoskeletal: Denies back pain and Denies neck pain Neurologic: Denies headache(s) and Denies weakness [facility] Past Medical History Medical History Seizure disorder Surveillance for Depo-Provera contraception Surgical History Surgical History History of shoulder surgery Family History Family History Grandparent Diabetes mellitus Mother Family history of malignant neoplasm of cervix Social History Social History Smoking status: Never smoker Alcohol intake: never Substance use: never Exam Const: General: no acute distress and well developed Orientation/consciousness: oriented to person, oriented to place, oriented to time and patient oriented x3 HENMT: Head: normocephalic Ears: external ears normal and other (foreign body noted in right ear canal) General nose exam: Normal external nose present Eyes: General: appearance normal, both eyes and all related structures Conjunctivae: conjunctivae normal Neck: Neck: normal visual inspection and full ROM Chest: Chest palpation & inspection: normal inspection of the chest and no tenderness Neuro: General: oriented to person, oriented to place, oriented to time and patient oriented x3 Cognition (Neuro): normal cognition Extrem: General: normal to inspection, full ROM and no pedal edema Psych: Appearance: grossly normal Mental Status: mental status grossly normal Affect: normal affect Course Vital Signs Vital signs: Vital Signs Temperature 36.7 C 10/02/20 21:31 Pulse Rate 76 10/02/20 21:31 Respiratory Rate 16 10/02/20 21:31 Blood Pressure 112/68 10/02/20 21:31 Pulse Oximetry 98 10/02/20 21:31 Temperature 36.7 C 10/02/20 21:31 Pulse Rate 76 10/02/20 21:31 Respiratory Rate 16 10/02/20 21:31 Blood Pressure 112/68 10/02/20 21:31 Pulse Oximetry 98 10/02/20 21:31 Medical Decision Making Vital Signs Vital Signs: Vital Signs Temperature 36.7 C 10/02/20 21:31 Pulse Rate 76 10/02/20 21:31 Respiratory Rate 16 10/02/20 21:31 Blood Pressure 112/68 10/02/20 21:31 Pulse Oximetry 98 10/02/20 21:31 Temperature 36.7 C 10/02/20 21:31 Pulse Ra
[2020-10-02 23:00] VITALS: BP 112/64; PULSE 78; RESP 16; TEMP 36.3; O2SAT 98
== END 2020-10-02 23:01 | disposition home or self-care (01) ==
PROVIDERS: Emergency Provider Emergency Medicine; PCP Pediatrics
DX: T16.1XXA Foreign body in right ear, initial encounter (principal); G40.909 Epilepsy, unspecified, not intractable, without status epilepticus
CPT/HCPCS: 69200; 99282

== ENCOUNTER 2022-05-24 21:51 | Emergency (ER) | payer OTHER, SELFPAY ==
--- NOTE | ~2022-05-24 | CT_ITS ---
EXAMINATION: CT abdomen pelvis wo con DATE: 05/25/2022 00:04 INDICATION: Right flank pain. History of kidney stones. TECHNIQUE: Computed tomography (CT) of the abdomen and pelvis was performed without intravenous contr ast. The dose-length product was 180.08 mGy-cm. Automated exposure control and iterative reconstructi on technique were employed. COMPARISON: CT dated 08/14/2020. FINDINGS: Lung bases are unremarkable. Heart size normal. No significant pleural or pericardial effus ion. No significant vascular abnormality. No lymphadenopathy. There is punctate nonobstructing left r enal stone. There are small low-density lesions in the right kidney, too small to characterize, altho ugh likely benign cysts. No hydronephrosis. No definite ureteral stones. The liver, spleen, pancreas, adrenal glands are unremarkable for noncontrast CT examination. The appe ndix contains hyperdense material, possibly contrast. No significant surrounding inflammatory changes to suggest appendicitis. Nonobstructive bowel gas pattern. No acute osseous abnormality. No free air or free fluid. IMPRESSION: 1. Nonobstructing left nephrolithiasis. Reviewed, dictated and finalized at location A. [facility]IP[facility]
[2022-05-24 21:57] VITALS: BP 114/71; PULSE 81; RESP 18; TEMP 36.6; O2SAT 98
--- NOTE | 2022-05-24 22:17 | ED.GENADULT ---
HPI - General Adult General Chief complaint: Abdominal Pain Stated complaint: Sharp Side Pain Time Seen by Provider: 05/24/22 22:02 History of Present Illness HPI narrative: This is a 21-year-old female with history of kidney stones presenting ED with right-sided flank pain. The patient's pain started at approximately 9:00 a.m. this evening. It is a sharp pain that radiated from her right flank wraps around into her stomach. Sharp, 10 out 10 intensity and constant. She had hydrocodone at home from a previous kidney stone which he took which improved her pain. She says this pain feels similar to kidney stone she has had in the past. She does not have any associated nausea, vomiting, dysuria, hematuria or abdominal pain. no chest pain difficulty breathing. Related Data Home Medications Medication Instructions Recorded Confirmed ethosuximide 250 mg capsule 250 mg PO BID 08/17/19 11/25/21 folic acid 1 mg tablet 1 mg PO DAILY 08/17/19 11/25/21 lamotrigine 150 mg tablet 150 mg PO DAILY 08/17/19 11/25/21 multivitamin (Daily Multi-Vitamin 1 tablet PO DAILY 08/17/19 11/25/21 tablet) zonisamide 100 mg capsule 100 mg PO DAILY 08/17/19 11/25/21 Allergies Allergy/AdvReac Type Severity Reaction Status Date / Time Penicillins Allergy Unknown Unknown Verified 05/24/22 22:00 [facility] Past Medical History Medical History Seizure disorder Surgical History Surgical History History of shoulder surgery [place] teeth removed Family History Family History Grandparent Diabetes mellitus Mother Family history of malignant neoplasm of cervix Social History Social History Smoking status: Never smoker Alcohol intake: never Substance use: never Exam Narrative: APPEARANCE: No apparent distress. Head: atraumatic. EYES: EOMI, NOSE: Atraumatic NECK: Trachea midline RESPIRATORY: No increased rate of breathing clear to auscultation bilaterally CARDIOVASCULAR: RRR, no peripheral edema ABDOMINAL: Non-distended Nontender no guarding or rebound. No CVA tenderness MUSCULOSKELETAl: No obvious deformities NEURO: Alert. Moving 4/4 extremities SKIN:: Warm, dry. Normal color PSYCHIATRIC: Normal affect Course Vital Signs Vital signs: Vital Signs Temperature 97.9 F 05/24/22 21:57 Pulse Rate 81 05/24/22 21:57 Respiratory Rate 18 05/24/22 21:57 Blood Pressure 114/71 05/24/22 21:57 Pulse Oximetry 98 05/24/22 21:57 Oxygen Delivery Room Air 05/24/22 21:57 Temperature 97.9 F 05/24/22 21:57 Pulse Rate 81 05/24/22 21:57 Respiratory Rate 18 05/24/22 21:57 Blood Pressure 114/71 05/24/22 21:57 Pulse Oximetry 98 05/24/22 21:57 Oxygen Delivery Room Air 05/24/22 21:57 Medical Decision Making MDM Narrative Medical decision making narrative: -Presentation: 21-year-old female with a history of kidney stones presenting with sharp right-sided pain. -DDX includes but is not limited to: Kidney stone, UTI, MSK pain -Co-morbidities complicating care: epilepsy -Social determinants of health: lives at home with her parents -External Chart Review: none -Hx from independent Sources: Dale-friend -Discussion of Management/Consultants: none -Independent interpretation of studies: urinalysis was not indicative of urinary tract infection and had no red blood cells. CBC and CMP within normal limits. CT did not show any evidence of kidney stone or hydronephrosis. Did show significant fecal load and bowel gas without signs of obstruction. Dx tests considered but not ordered: None -Procedures: none -Interventions: none -Shared decision making / Disposition: Upon re-evaluation the patient's pain has not recurred she has not experienced pain while she has been in the
[2022-05-24 22:18] LABS: Appearance Urine Cloudy (Clear); Basophils Percent Auto 0.4 % (0.2-1.2); Bilirubin Urine Negative (Negative); Blood Urine 1+ (Negative); Color Urine Yellow (Yellow); Eosinophils Absolute Auto 0.1 K/mm3 (0-0.3); Glucose Urine UA Negative (Negative); Hematocrit 41.2 % (37.0-47.0); Hemoglobin 13.7 g/dL (12.0-15.0); Immature Granulocyte Absolute 0.02 K/mm3 (0.00-0.031); Immature Granulocyte Percent A 0.3 % (0-0.5); Ketones Urine Negative (Negative); Leukocyte Esterase Ur Negative LEU/UL (Negative); Lymphocytes Absolute Auto 1.68 K/mm3 (0.9-3.2); Lymphocytes Percent Auto 24.8 % (18.3-44.2); Mean Corpuscular HGB Conc 33.3 g/dl (32-36); Mean Corpuscular Hemoglobin 30.5 pg (26-34); Mean Corpuscular Volume 91.8 fl (80-100); Mean Platelet Volume 9.2 fl (7.4-10.4); Monocytes Absolute Auto 0.6 K/mm3 (0.1-0.6); Monocytes Percent Auto 8.9 % (2.6-8.5); Neutrophils Absolute Auto 4.4 K/mm3 (1.3-6.7); Neutrophils Percent Auto 64.6 % (45.5-73.1); Nitrate Urine Negative (Negative); Platelet Count Result 333 k/mm3 (150-375); Protein Urine Trace mg/dL (Negative); Red Blood Count 4.49 M/mm3 (4.2-5.4); Red Cell Distribution Width 13.2 % (11.5-14.5); Urobilinogen Urine 0.2 mg/dL (<2.0); White Blood Count 6.8 K/mm3 (4.5-10.0)
[2022-05-24 22:24] LABS: Amorphous Sediment Urine Few; Mucus Urine Rare /lpf; WBC Urine 0-3 /hpf
[2022-05-24 22:25] LABS: Add Urine Microscopic? YES
[2022-05-24 22:30] LABS: Alanine Aminotransferase 19 U/L (6-35); Albumin Level 4.5 g/dL (3.5-5.1); Alkaline Phosphatase 62 U/L (38-126); Anion Gap 7 mmol/L (8-16); Aspartate Amino Transferase 26 U/L (14-36); Bilirubin,Total 0.4 mg/dL (0.2-1.3); Blood Urea Nitrogen 8 mg/dL (7-17); Calcium 8.7 mg/dL (8.4-10.2); Carbon Dioxide 25 mmol/L (22-30); Chloride 107 mmol/L (98-107); Estimated Glomerular Filt Rate > 60; Glucose 80 mg/dL (65-110); Lipase 84 U/L (23-300); Potassium 3.9 mmol/L (3.4-5.0); Sodium 139 mmol/L (137-145)
[2022-05-25 01:25] VITALS: BP 112/72; PULSE 72; RESP 16; TEMP 36.8; O2SAT 100
== END 2022-05-25 01:25 | disposition left against medical advice (07) ==
PROVIDERS: Emergency Provider Emergency Medicine; PCP Pediatrics
DX: R10.9 Unspecified abdominal pain (principal); G40.909 Epilepsy, unspecified, not intractable, without status epilepticus; Z87.442 Personal history of urinary calculi; N20.0 Calculus of kidney
CPT/HCPCS: 36415; 74176; 80053; 81001; 81025; 83690; 85025; 99284

== ENCOUNTER 2022-08-01 04:08 | Emergency (ER) | payer OTHER, SELFPAY ==
[2022-08-01] VITALS (8 sets, daily range): BP systolic 110–112; BP diastolic 66–73; PULSE 80–119; RESP 16–24; TEMP 36.1–37.1; O2SAT 97–100
--- NOTE | ~2022-08-01 | XR_ITS ---
EXAMINATION: XR shoulder RT min 2V DATE: 08/01/2022 04:34 INDICATION: Right shoulder dislocation TECHNIQUE: AP, oblique and transscapular Y views of the right shoulder were obtained. COMPARISON: Multiple shoulder radiographs dating from 08/23/2020 through 11/19/2013 FINDINGS: Recurrent anterior inferior dislocation of the right glenohumeral joint. Acromioclavicular joint is n ormal. Again seen is a chronic Hill-Sachs fracture trough at the posterolateral right humeral head. T here is also a chronic T6 compression fracture seen on CT dated . No evident acute fracture. Vis ualized portion of the lungs are clear. IMPRESSION: Recurrent anteroinferior right glenohumeral dislocation. Reviewed, dictated and finalized at location A.
--- NOTE | ~2022-08-01 | XR_ITS ---
EXAMINATION: XR shoulder RT min 2V DATE: 08/01/2022 07:32 INDICATION: Postreduction right glenohumeral dislocation. TECHNIQUE: AP and transscapular Y views of the right shoulder were obtained. COMPARISON: None FINDINGS: Successful reduction of the previously dislocated right glenohumeral joint which is now in normal ali gnment. Acromioclavicular joint is normal. The chronic Hill-Sachs fracture trough seen on prior imagi ng is not appreciated on the provided planes of imaging. No other fractures identified. Upper thoraci c levo scoliosis. Chronic T6 compression fracture. IMPRESSION: Successful reduction to anatomic alignment of a previously dislocated right glenohumeral joint. No ac billy fracture. Reviewed, dictated and finalized at location A. IMPRESSION: Successful reduction to anatomic alignment of a previously dislocated right gle nohumeral joint. No acute fracture.
[2022-08-01] MEDS: BUPivacaine HCL 0.25% PF 30 ML VIAL INFILTRATE (05:23)
--- NOTE | 2022-08-01 06:28 | ED.GENADULT ---
HPI - General Adult General Chief complaint: Extremity Injury, Upper Stated complaint: dislocated right shoulder Time Seen by Provider: 08/01/22 04:35 History of Present Illness HPI narrative: This is a 21-year-old female presenting ED with a shoulder dislocation. She has dislocated multiple times in the past. She said she reached for cellphone and then her shoulder fell out of place. She does have some pain but no other injuries. No numbness tingling or weakness to the hand. Related Data Home Medications Medication Instructions Recorded Confirmed ethosuximide 250 mg capsule 250 mg PO BID 08/17/19 11/25/21 folic acid 1 mg tablet 1 mg PO DAILY 08/17/19 11/25/21 lamotrigine 150 mg tablet 150 mg PO DAILY 08/17/19 11/25/21 multivitamin (Daily Multi-Vitamin 1 tablet PO DAILY 08/17/19 11/25/21 tablet) zonisamide 100 mg capsule 100 mg PO DAILY 08/17/19 11/25/21 Allergies Allergy/AdvReac Type Severity Reaction Status Date / Time Penicillins Allergy Unknown Unknown Verified 05/24/22 22:00 [facility] Past Medical History Medical History Seizure disorder Surgical History Surgical History History of shoulder surgery [place] teeth removed Family History Family History Grandparent Diabetes mellitus Mother Family history of malignant neoplasm of cervix Social History Social History Smoking status: Never smoker Alcohol intake: never Substance use: never Exam Narrative: APPEARANCE: No apparent distress. Head: atraumatic. EYES: EOMI, NOSE: Atraumatic NECK: Trachea midline RESPIRATORY: No increased rate of breathing CARDIOVASCULAR: RRR, ABDOMINAL: Non-distended MUSCULOSKELETAl: focal exam of right upper extremity revealed no loss of sensation over the lateral deltoid. 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 Patient is able to give a thumbs-up oppose thumb and pinky and spread her hand. Cap refills less than 2 seconds and pulses are intact. NEURO: Alert. Moving 4/4 extremities SKIN:: Warm, dry. Normal color PSYCHIATRIC: Normal affect Course Vital Signs Vital signs: Vital Signs Temperature 97 F L 08/01/22 04:12 Pulse Rate 81 08/01/22 04:12 Respiratory Rate 20 08/01/22 04:12 Blood Pressure 110/66 08/01/22 04:12 Pulse Oximetry 100 08/01/22 04:12 Oxygen Delivery Room Air 08/01/22 04:12 Temperature 97 F L 08/01/22 04:12 Pulse Rate 81 08/01/22 04:12 Respiratory Rate 20 08/01/22 04:12 Blood Pressure 110/66 08/01/22 04:12 Pulse Oximetry 100 08/01/22 04:12 Oxygen Delivery Room Air 08/01/22 04:12 Procedures Orthopedic Joint Reduction Joint #1: Orthopedic Joint Reduction Date: 08/01/22 Time Out Performed: Yes Side: right Joint Reduction Location: shoulder Analgesia: procedural sedation Pre-Procedure Neuro Vascular Exam: normal Shoulder Technique Used (if applicable): traction/counter-traction and external rotation Post-reduction neuro exam: intact Post-reduction vascular: intact Post Reduction X-Ray Obtained: Yes Post Reduction X-Ray Results: reduced Splint Applied: Yes Patient Tolerated Procedure: well Procedural Sedation Procedural Sedation #1: Procedural Sedation Date: 08/01/22 Provider Performed: sedation and procedure Informed Consent Obtained: yes Equipment in Room: bag and mask, capnography, vehicle monitor technician, crash cart, oxygen, pulse oximeter and suction Plan for Sedation: moderate sedation ASA Class: I Mallampati Classification: class I Explanation to Patient/Family: Risk/Benefits/Alternatives Pt. Educated on Procedural Sedation: Yes Re-evaluated immediately prior: Yes Preparation: vehicle monitor technician applied,
[2022-08-01] MEDS: ETOMIDATE 20 MG/10 ML AMPUL 5 MG IV PUSH (07:00)
--- NOTE | 2022-08-01 07:02 | PC.NURSE ---
0702 pt. given 5 mg etomidate ivp vorb erp
--- NOTE | 2022-08-01 07:07 | PC.NURSE ---
0705 50 mg propofol ivp 0708 50 mg propofol ivp
== END 2022-08-01 08:11 | disposition home or self-care (01) ==
PROVIDERS: Emergency Provider Emergency Medicine; PCP Pediatrics
DX: S43.004A Unspecified dislocation of right shoulder joint, initial encounter (principal); X50.0XXA Overexertion from strenuous movement or load, initial encounter; G40.909 Epilepsy, unspecified, not intractable, without status epilepticus
CPT/HCPCS: 23655; 73030; 96374; 99285; A4565; J2704